=== PATIENT | male | born 1950 | race Caucasian/White ===

== ENCOUNTER 2018-08-17 07:31 | Emergency (ER) | payer MEDICARE, OTHER ==
--- NOTE | 2018-08-17 07:55 | ER Report ---
History and Physical Time Seen By MD: 08:45 Hx. of Stated Complaint: PATIENT REPORTS TROUBLE BREATHING AND CHEST PAIN. PATIENT HAS A PACEMAKER/DEFIB THAT WENT OFF AND WAS TOLD TO COME TO THE ER HPI/ROS CHIEF COMPLAINT: Shortness of breath HISTORY OF PRESENT ILLNESS: Patient is a 59 HO male significant history of diabe j carlos hypertension 2 stents placed congestive heart failure [place] who is noticed worsening shortness of breath and occasional pleuritic chest pain. Patient also has a pacemaker defibrillator which has sent warnings to the wrist with receptive sites notifying that when he is coughing harsh he's had some dysrhythmias. Patient says he also been wrestling with an upper respiratory infection for the last 2-3 weeks which has gotten worse since she's come to altitude. Patient has obstructive sleep apnea morbid obesity and a CPAP the last 5 months comes emergency Department today after being consulted with resulting from his worsening shortness of breath mild orthopnea and change from baseline no PND no additional complaints noted the chest pain is occasional dull aching in the middle of the sternum that he's had this numerous times before no additional complaints noted REVIEW OF SYSTEMS: Respiratory: Cough shortness of breath Cardiovascular: Dull aching chest discomfort intermittent no palpitations Gastrointestinal: No vomiting, no abdominal pain. Musculoskeletal: No back pain. Remainder of the 14 system rev: Yes Allergies: Coded Allergies: No Known Drug Allergies (Unverified , 08/17/18) Home Meds Reported Medications Insulin Glargine 100 Un/Ml Pen (LANTUS SOLOSTAR PEN) 100 Unit/1 Ml Insuln.pen, 100 UNIT SQ, PEN 08/17/18 Vitamin A (VITAMIN A) 10,000 Unit Capsule, 45699 UNIT PO DAILY, CAPSULE 08/17/18 Clopidogrel Bisulfate (CLOPIDOGREL) 75 Mg Tablet, 1 TAB PO QDAY, TAB 08/17/18 Carvedilol (CARVEDILOL) 12.5 Mg Tablet, 12.5 MG PO BID, #10 TAB 08/17/18 Sacubitril/Valsartan (Entresto 24 mg-26 mg Tablet) 1 Each Tablet, 24 MG 08/17/18 Gabapentin (GABAPENTIN) 300 Mg Capsule, 300 MG PO TID, CAPSULE 08/17/18 Atorvastatin Calcium (LIPITOR) 40 Mg Tablet, 1 TAB PO QDAY, TAB 08/17/18 Pioglitazone Hcl (ACTOS) 45 Mg Tablet, 45 MG PO QDAY 08/17/18 Reviewed Nurses Notes: Yes Old Medical Records Reviewed: Yes Constitutional Vital Sign - Last 24 Hours 08/17/18 08/17/18 08/17/18 08/17/18 07:31 07:35 07:35 07:46 Temp 98.4 Pulse ??? 91 93 Resp 20 B/P (MAP) 158/103 158/103 (121) Pulse Ox 95 O2 Delivery Room Air 08/17/18 08/17/18 08/17/18 08/17/18 08:01 08:11 08:16 08:30 Pulse 91 89 Resp 28 26 B/P (MAP) 135/87 (103) 141/91 (108) Pulse Ox 95 97 O2 Flow Rate 2.0 08/17/18 08/17/18 08/17/18 08/17/18 08:31 08:46 09:01 09:11 Pulse 85 86 81 81 Resp 25 24 Pulse Ox 92 92 Physical Exam General Appearance: The patient is alert, has no immediate need for airway protection and no current signs of toxicity. [ ] Eyes: Pupils equal and round no injection. Respiratory: Chest is non tender, lungs are clear to auscultation. Cardiac: regular rate and rhythm [ ] Gastrointestinal: Abdomen is soft and non tender, no masses, bowel sounds normal. Musculoskeletal: Neck: Neck is supple and non tender. Extremities have full range of motion and are non tender. Skin: No rashes or lesions. [ ] DIFFERENTIAL DIAGNOSIS: After history and physical exam differential diagnosis was considered for CHF COPD pneumonia congestive heart failure myocardial infarction pulmonary emboli altitude effect Medical Decision Making Data Points Result Diagram: 08/17/18 0800 08/17/18 0800 Laboratory Hematology Test 08/17/18 08:00 08/17/18 08:22 Red Blood Count 3.98 M/uL (4.00-5.60) Mean Corpuscular Volume 93.2 fL (80.0-96.0) Mean Corpuscular Hemoglobin 30.7 pg (26.0-33.0) Mean Corpuscular Hemoglobin Concent 32.9 g/dL (32.0-36.0) Red Cell Distribution Width 13.8 % (11.5-14.5) Mean Platelet Volume 9.6 fL (7.2-11.1) Neutrophils (%) (Auto) 61.7 % (39.4-72.5) Lymphocytes (%) (Auto) 26.5 % (17.6-49.6) Monocytes (%) (Auto) 8.6 % (4.1-12.4) Eosinophils (%) (Auto) 2.7 % (0.4-6.7) Basophils (%) (Auto) 0.5 % (0.3-1.4) Nucleated RBC Relative Count (auto) 0.0 /100WBC Neutrophils # (Auto) 5.1 K/uL (2.0-7.4) Lymphocytes # (Auto) 2.2 K/uL (1.3-3.6) Monocytes # (Auto) 0.7 K/uL (0.3-1.0) Eosinophils # (Auto) 0.2 K/uL (0.0-0.5) Basophils # (Auto) 0.0 K/uL (0.0-0.1) Nucleated RBC Absolute Count (auto) 0.00 K/uL D-Dimer Quantitative (PE/DVT) 0.66 ug/ml (0-0.50) Sodium Level 138 mmol/L (137-145) Potassium Level 4.6 mmol/L (3.5-5.0) Chloride Level 102 mmol/L (98-107) Carbon Dioxide Level 27 mmol/L (22-30) Blood Urea Nitrogen 33 mg/dl (9-21) Creatinine 1.40 mg/dl (0.66-1.25) Glomerular Filtration Rate Calc 50.4 Random Glucose 296 mg/dl (75-110) Calcium Level 9.2 mg/dl (8.4-10.2) Total Bilirubin 0.4 mg/dl (0.2-1.3) Aspartate Amino Transf (AST/SGOT) 22 U/L (0-35) Alanine Aminotransferase (ALT/SGPT) 25 U/L (0-56) Alkaline Phosphatase 87 U/L (0-126) Troponin I < 0.012 ng/ml B-Type Natriuretic Peptide 45 pg/ml (0-100) Total Protein 7.4 g/dl (6.3-8.2) Albumin 4.0 g/dl (3.5-5.0) Blood Gas Puncture Site Left radial Blood Gas Patient Temperature 97.5 DEGREES Arterial Blood pH 7.42 (7.35-7.45) Arterial Blood Partial Pressure CO2 31 mmHg (32-37) Arterial Blood Partial Pressure O2 72 mmHg (60-80) Arterial Blood HCO3 20 mmol/L (20-26) Arterial Blood Oxygen Saturation 95 % (92-100) Arterial Blood Base Excess -4.0 mmol/L Orlando Test Acceptable Oxygen Liters/Minute 28 Chemistry Test 08/17/18 08:00 08/17/18 08:22 White Blood Count 8.3 k/uL (4.5-11.0) Red Blood Count 3.98 M/uL (4.00-5.60) Hemoglobin 12.2 g/dL (14.0-18.0) Hematocrit 37.1 % (42.0-52.0) Mean Corpuscular Volume 93.2 fL (80.0-96.0) Mean Corpuscular Hemoglobin 30.7 pg (26.0-33.0) Mean Corpuscular Hemoglobin Concent 32.9 g/dL (32.0-36.0) Red Cell Distribution Width 13.8 % (11.5-14.5) Platelet Count 167 K/uL (150-450) Mean Platelet Volume 9.6 fL (7.2-11.1) Neutrophils (%) (Auto) 61.7 % (39.4-72.5) Lymphocytes (%) (Auto) 26.5 % (17.6-49.6) Monocytes (%) (Auto) 8.6 % (4.1-12.4) Eosinophils (%) (Auto) 2.7 % (0.4-6.7) Basophils (%) (Auto) 0.5 % (0.3-1.4) Nucleated RBC Relative Count (auto) 0.0 /100WBC Neutrophils # (Auto) 5.1 K/uL (2.0-7.4) Lymphocytes # (Auto) 2.2 K/uL (1.3-3.6) Monocytes # (Auto) 0.7 K/uL (0.3-1.0) Eosinophils # (Auto) 0.2 K/uL (0.0-0.5) Basophils # (Auto) 0.0 K/uL (0.0-0.1) Nucleated RBC Absolute Count (auto) 0.00 K/uL D-Dimer Quantitative (PE/DVT) 0.66 ug/ml (0-0.50) Glomerular Filtration Rate Calc 50.4 Calcium Level 9.2 mg/dl (8.4-10.2) Total Bilirubin 0.4 mg/dl (0.2-1.3) Aspartate Amino Transf (AST/SGOT) 22 U/L (0-35) Alanine Aminotransferase (ALT/SGPT) 25 U/L (0-56) Alkaline Phosphatase 87 U/L (0-126) Troponin I < 0.012 ng/ml B-Type Natriuretic Peptide 45 pg/ml (0-100) Total Protein 7.4 g/dl (6.3-8.2) Albumin 4.0 g/dl (3.5-5.0) Blood Gas Puncture Site Left radial Blood Gas Patient Temperature 97.5 DEGREES Arterial Blood pH 7.42 (7.35-7.45) Arterial Blood Partial Pressure CO2 31 mmHg (32-37) Arterial Blood Partial Pressure O2 72 mmHg (60-80) Arterial Blood HCO3 20 mmol/L (20-26) Arterial Blood Oxygen Saturation 95 % (92-100) Arterial Blood Base Excess -4.0 mmol/L Orlando Test Acceptable Oxygen Liters/Minute 28 Coagulation Test 08/17/18 08:00 D-Dimer Quantitative (PE/DVT) 0.66 ug/ml ED Course/Re-evaluation ED Course ED course 67-year-old male who came in today with some shortness of breath he is recently traveled to higher altitudes however he does have a strong a significant history of cardiac abnormalities I didn't ABG which was relatively unremarkable BNP d-dimer was elevated follow-up CT angiography showed no pulmona ry emboli but some small nodules no pleural effusions EKG was consistent with his prior episodes and showed no ischemic changes negative troponin markers were also noted give him supplemental O2 which she said made him feel better and I will start him on some month O2 at home at least for the next period of time for follow-up diagnosis will be shortness of breath most likely altitude related Decision to Disposition Date: Aug 17, 2018 Decision to Disposition Time: 09:58 Depart Departure Latest Vital Signs Vital Signs Date Time Temp Pulse Resp B/P (MAP) Pulse Ox O2 Delivery O2 Flow Rate FiO2 08/17/18 09:11 81 08/17/18 08:46 24 92 08/17/18 08:30 141/91 (108) 6/6/19 08:11 2.0 08/17/18 07:35 98.4 Room Air Impression: Primary Impression: Shortness of breath Condition: Improved Disposition: HOME OR SELF-CARE Referrals: BUCKY GARCIA 10 Days Patient Instructions: Dyspnea (ED) PAULINE ADAME MD Aug 17, 2018 07:55
--- NOTE | 2018-08-17 08:07 | EKG ---
FACILITY: [facility] PATIENT NAME: BENJY PARTIDA : [id number] MR: [id number] V: [id number] EXAM DATE: ORDERING PHYSICIAN: PAULINE ADAME TECHNOLOGIST: Test Reason : Blood Pressure : / mmHG Vent. Rate : 091 BPM Atrial Rate : 091 BPM P-R Int : 176 ms QRS Dur : 118 ms QT Int : 400 ms P-R-T Axes : 073 227 070 degrees QTc Int : 492 ms Appears to be electronic ventricular paced rhythm One PVC noted Abnormal ECG No previous ECGs available Confirmed by JAMAL ARIAS ([id number]) on 08/17/2018 3:10:54 PM Referred By: Confirmed By:JAMAL ARIAS
[2018-08-17 08:12] LABS: PLATELET COUNT, AUTOMATED 167 K/uL (150-450)
[2018-08-17] MEDS ORDERED: NS(*) 0.9% 50 ML BAG 50 ML ONE (08:50)
[2018-08-17] MEDS ORDERED: IOPAMIDOL 76% 100 ML INFUS BTL 100 ML ONE (08:50)
[2018-08-17] MEDS ORDERED: PIOG45TA22 PO (08:51)
[2018-08-17] MEDS ORDERED: GABA-549 PO (08:55)
[2018-08-17] MEDS ORDERED: INSU100I30 SQ (08:55)
[2018-08-17] MEDS ORDERED: ATOR40TA24 PO (08:55)
[2018-08-17] MEDS ORDERED: CARV12.578 PO (08:55)
[2018-08-17] MEDS ORDERED: SACU1TAB (08:55)
[2018-08-17] MEDS ORDERED: CLOP75TA PO (08:55)
[2018-08-17] MEDS ORDERED: [UNRECOGNIZED DRUG - CODE] PO (08:55)
--- NOTE | 2018-08-17 09:37 | RADIOLOGY IMAGING REPORT ---
FACILITY: [facility] PATIENT NAME: Elver Callejas : 1950 MR: [id number] V: [id number] EXAM DATE: ORDERING PHYSICIAN: PAULINE ADAME TECHNOLOGIST: Location: [facility] Patient: Elver Callejas : 1950 Visit/Account:[id number] Date of Sevice: 08/17/2018 CT CTA CHEST W & W/O CON HISTORY: sob ADDITIONAL HISTORY: None. TECHNIQUE: CTA chest with intravenous contrast. Axial imaging acquired following administration of IV contrast timed for maximum opacification of the pulmonary arterial vasculature. Slab 3-D MIP waldo nstructed images were also created for further evaluation and interpretation. Reconstruction of the s [facility] data set includes multiplanar 2-D in the sagittal and coronal planes and 3-D reconstructed lisa nal slab MIP series. 3-D images were created by the technologist.Dose Lowering Technique One of the following dose optimization techniques was utilized in the performance of this exam: Autom ated exposure control; adjustment of the mA and/or kV according to the patient's size; or use of an i terative reconstruction technique. Specific details can be referenced in the facility's radiology C T exam operational policy. CONTRAST: 75 mL Isovue-370 COMPARISON: None. FINDINGS: Lungs/pleura: There are small calcified granulomas in the right middle lobe in addition to several s maller noncalcified nodules of the largest measuring approximately 3 mm in diameter. There is a smal l amount of airspace consolidation the posterior sulcus of the right lower lobe likely representing a telectasis. Several small calcified granulomas also identified in the left lower lobe Heart/vessels: There is no evidence of pulmonary emboli. Cardiac pacemaker/AICD device is noted. T here are severe coronary artery calcifications and/or stents Mediastinum/lymph nodes: Negative. Visualized upper abdomen: There upper pole renal cysts bilaterally Bones/soft tissues: Scoliosis and spondylotic changes of the thoracic spine Additional findings: The right lobe the thyroid gland appears enlarged and contains a heterogeneous mass IMPRESSION: No evidence of pulmonary emboli There are severe coronary artery calcifications and/or stents There are small calcified and noncalcified pulmonary nodules in the right middle lobe measuring up to 3 mm FLEISCHNER SOCIETY FOLLOW-UP GUIDELINES FOR NEWLY DETECTED INCIDENTAL NODULES IN PERSONS 35 YEARS OF AGE OR OLDER. *These recommendations do NOT apply to lung cancer screening, patients with immunosuppression or wayne ents with a known primary malignancy. MULTIPLE SOLID NODULES If nodule size is < 6 mm: * Low risk patient ? No routine follow-up. * High risk patient ? Optional CT at 12 months. If nodule size is 6-8 mm: * Low risk patient ? CT at 3-6 months, then consider CT at 18-24 months if no change. * High risk patient ? CT at 3-6 months, then CT at 18-24 months if no change. If nodule size is > 8 mm: * Low risk patient ? CT at 3-6 months, then consider CT at 18-24 months if no change. * High risk patient ? CT at 3-6 months, then consider CT at 18-24 months if no change. LOW RISK PATIENT: Minimal or absent history of tobacco use and of other known risk factors. HIGH RISK PATIENT: Tobacco use, family history of lung cancer, upper pulmonary lobe location of nodul e, presence of emphysema, pulmonary fibrosis, older age. Jimmyhoerwin H, Rahel DP, Nichelle JM, et al. Guidelines for Management of Incidental Pulmonary Nodules Dete cted on CT Images: From the Fleischner Society 2017. Radiology. uchnipn Renal cysts The right lobe of the thyroid gland appears enlarged and contains a heterogeneous mass. Thyroid ultr asound is recommended Report Dictated By: Anni Almanza MD at 08/17/2018 9:22 AM Report E-Signed By: Anni Almanza MD at 08/17/2018 9:33 AM GONSALO:NEO
[2018-08-17 10:27] VITALS: BP 126/78
== END 2018-08-17 10:55 | disposition home or self-care (01) ==
LOC: ER 07:44
DX: R06.02 Shortness of breath (principal)
CPT/HCPCS: 36600; 71275; 82803; 83880; 84484; 85025; 85379; 93005; 99284; J7050; Q9967; 82040; 82247; 82310; 82374; 82435; 82565; 82947; 84075; 84132; 84155; 84295; 84450; 84460; 84520

== ENCOUNTER 2018-09-18 12:52 | Emergency (ER) | payer MEDICARE, OTHER ==
[~2018-09-18 12:52] MED LIST: ATOR40TA24 PO; CARV12.578 PO; CLOP75TA PO; GABA-549 PO; INSU100I30 SQ; PIOG45TA22 PO; SACU1TAB; [UNRECOGNIZED DRUG - CODE] PO
--- NOTE | 2018-09-18 12:54 | ER Report ---
History and Physical Time Seen By : 12:52 HPI/ROS Recently moved to [place] from [place]. Multiple chronic medical problems including DM. HTN. previous NV with stents, and obesity. Complaining of b/l lower abdominal pain. No BM in 2 days. No n/d. No dysuria. No hematuria. No penile discharge. No CP or SOB. No trauma. Remainder of the 14 system rev: Yes Allergies: Coded Allergies: No Known Drug Allergies (Unverified , 08/17/18) Home Meds Reported Medications Empagliflozin (Jardiance) 25 Mg Tablet, 25 MG PO QDAY 09/18/18 Insulin Glargine 100 Un/Ml Pen (LANTUS SOLOSTAR PEN) 100 Unit/1 Ml Insuln.pen, 100 UNIT SQ, PEN 08/17/18 Vitamin A (VITAMIN A) 10,000 Unit Capsule, 89819 UNIT PO DAILY, CAPSULE 08/17/18 Clopidogrel Bisulfate (CLOPIDOGREL) 75 Mg Tablet, 1 TAB PO QDAY, TAB 08/17/18 Carvedilol (CARVEDILOL) 12.5 Mg Tablet, 12.5 MG PO BID, #10 TAB 08/17/18 Sacubitril/Valsartan (Entresto 24 mg-26 mg Tablet) 1 Each Tablet, 24 MG 08/17/18 Gabapentin (GABAPENTIN) 300 Mg Capsule, 300 MG PO TID, CAPSULE 08/17/18 Atorvastatin Calcium (LIPITOR) 40 Mg Tablet, 1 TAB PO QDAY, TAB 08/17/18 Pioglitazone Hcl (ACTOS) 45 Mg Tablet, 45 MG PO QDAY 08/17/18 Reviewed Nurses Notes: Yes Old Medical Records Reviewed: Yes Hx Substance Use Disorder: Yes Constitutional Vital Sign - Last 24 Hours 09/18/18 09/18/18 09/18/18 09/18/18 12:54 12:58 13:00 13:22 Temp 97.4 Pulse 99 Resp 24 B/P (MAP) 152/109 (123) 152/109 126/104 (111) Pulse Ox 94 90 O2 Delivery Room Air 09/18/18 09/18/18 09/18/18 09/18/18 13:30 13:41 14:00 14:05 Pulse 80 B/P (MAP) 118/66 (83) 112/66 (81) 128/87 (101) Pulse Ox 92 09/18/18 09/18/1819 14:30 14:35 15:05 Pulse 99 109 Resp 0 6 B/P (MAP) 93/71 (78) Physical Exam General Appearance: The patient is alert, has no immediate need for airway protection and no current signs of toxicity. Eyes: Pupils equal and round no injection. Respiratory: Chest is non tender, lungs are clear to auscultation. Cardiac: regular rate and rhythm Gastrointestinal: Abdomen is soft with minimal TTP of the b/l lower quadrants. no masses, bowel sounds normal. Extremities have full range of motion and are non tender. Skin: No rashes or lesions. DIFFERENTIAL DIAGNOSIS: After history and physical exam differential diagnosis was considered for abdominal pain including but not limited to appendicitis, cholecystitis, gastritis and urinary tract infection. Medical Decision Making Data Points Result Diagram: 09/18/18 1311 09/18/18 1311 Laboratory Hematology Test 09/18/18 13:11 09/18/18 13:20 Red Blood Count 4.29 M/uL (4.00-5.60) Mean Corpuscular Volume 92.0 fL (80.0-96.0) Mean Corpuscular Hemoglobin 30.9 pg (26.0-33.0) Mean Corpuscular Hemoglobin Concent 33.6 g/dL (32.0-36.0) Red Cell Distribution Width 13.8 % (11.5-14.5) Mean Platelet Volume 9.7 fL (7.2-11.1) Neutrophils (%) (Auto) 62.9 % (39.4-72.5) Lymphocytes (%) (Auto) 26.1 % (17.6-49.6) Monocytes (%) (Auto) 8.5 % (4.1-12.4) Eosinophils (%) (Auto) 2.1 % (0.4-6.7) Basophils (%) (Auto) 0.4 % (0.3-1.4) Nucleated RBC Relative Count (auto) 0.0 /100WBC Neutrophils # (Auto) 5.0 K/uL (2.0-7.4) Lymphocytes # (Auto) 2.1 K/uL (1.3-3.6) Monocytes # (Auto) 0.7 K/uL (0.3-1.0) Eosinophils # (Auto) 0.2 K/uL (0.0-0.5) Basophils # (Auto) 0.0 K/uL (0.0-0.1) Nucleated RBC Absolute Count (auto) 0.00 K/uL Sodium Level 140 mmol/L (137-145) Potassium Level 4.2 mmol/L (3.5-5.0) Chloride Level 107 mmol/L (98-107) Carbon Dioxide Level 20 mmol/L (22-30) Blood Urea Nitrogen 30 mg/dl (9-21) Creatinine 1.60 mg/dl (0.66-1.25) Glomerular Filtration Rate Calc 43.1 Random Glucose 330 mg/dl (75-110) Calcium Level 9.1 mg/dl (8.4-10.2) Total Bilirubin 0.4 mg/dl (0.2-1.3) Aspartate Amino Transf (AST/SGOT) 22 U/L (0-35) Alanine Aminotransferase (ALT/SGPT) 39 U/L (0-56) Alkaline Phosphatase 99 U/L (0-126) Troponin I < 0.012 ng/ml B-Type Natriuretic Peptide 119 pg/ml (0-100) Total Protein 7.3 g/dl (6.3-8.2) Albumin 3.8 g/dl (3.5-5.0) Lipase 187 U/L (23-300) Urine Color Straw Urine Clarity Clear Urine pH 5.0 pH (4.8-9.5) Urine Specific [place] 1.025 Urine Protein Negative mg/dL (NEGATIVE) Urine Glucose (UA) 500 mg/dL (NEGATIVE) Urine Ketones Negative mg/dL (NEGATIVE) Urine Blood Negative (NEGATIVE) Urine Nitrite Negative (NEGATIVE) Urine Bilirubin Negative (NEGATIVE) Urine Urobilinogen Negative mg/dL (0.2-1.9) Urine Leukocyte Esterase Negative (NEGATIVE) Urine RBC <1 /HPF (0-2/HPF) Urine WBC <1 /HPF (0-5/HPF) Urine Squamous Epithelial Cells None /LPF (</=FEW) Urine Bacteria Negative /HPF (NONE-FEW) Urine Mucus None /HPF (NONE-FEW) Chemistry Test 09/18/18 13:11 09/18/18 13:20 White Blood Count 8.0 k/uL (4.5-11.0) Red Blood Count 4.29 M/uL (4.00-5.60) Hemoglobin 13.3 g/dL (14.0-18.0) Hematocrit 39.5 % (42.0-52.0) Mean Corpuscular Volume 92.0 fL (80.0-96.0) Mean Corpuscular Hemoglobin 30.9 pg (26.0-33.0) Mean Corpuscular Hemoglobin Concent 33.6 g/dL (32.0-36.0) Red Cell Distribution Width 13.8 % (11.5-14.5) Platelet Count 173 K/uL (150-450) Mean Platelet Volume 9.7 fL (7.2-11.1) Neutrophils (%) (Auto) 62.9 % (39.4-72.5) Lymphocytes (%) (Auto) 26.1 % (17.6-49.6) Monocytes (%) (Auto) 8.5 % (4.1-12.4) Eosinophils (%) (Auto) 2.1 % (0.4-6.7) Basophils (%) (Auto) 0.4 % (0.3-1.4) Nucleated RBC Relative Count (auto) 0.0 /100WBC Neutrophils # (Auto) 5.0 K/uL (2.0-7.4) Lymphocytes # (Auto) 2.1 K/uL (1.3-3.6) Monocytes # (Auto) 0.7 K/uL (0.3-1.0) Eosinophils # (Auto) 0.2 K/uL (0.0-0.5) Basophils # (Auto) 0.0 K/uL (0.0-0.1) Nucleated RBC Absolute Count (auto) 0.00 K/uL Glomerular Filtration Rate Calc 43.1 Calcium Level 9.1 mg/dl (8.4-10.2) Total Bilirubin 0.4 mg/dl (0.2-1.3) Aspartate Amino Transf (AST/SGOT) 22 U/L (0-35) Alanine Aminotransferase (ALT/SGPT) 39 U/L (0-56) Alkaline Phosphatase 99 U/L (0-126) Troponin I < 0.012 ng/ml B-Type Natriuretic Peptide 119 pg/ml (0-100) Total Protein 7.3 g/dl (6.3-8.2) Albumin 3.8 g/dl (3.5-5.0) Lipase 187 U/L (23-300) Urine Color Straw Urine Clarity Clear Urine pH 5.0 pH (4.8-9.5) Urine Specific [place] 1.025 Urine Protein Negative mg/dL (NEGATIVE) Urine Glucose (UA) 500 mg/dL (NEGATIVE) Urine Ketones Negative mg/dL (NEGATIVE) Urine Blood Negative (NEGATIVE) Urine Nitrite Negative (NEGATIVE) Urine Bilirubin Negative (NEGATIVE) Urine Urobilinogen Negative mg/dL (0.2-1.9) Urine Leukocyte Esterase Negative (NEGATIVE) Urine RBC <1 /HPF (0-2/HPF) Urine WBC <1 /HPF (0-5/HPF) Urine Squamous Epithelial Cells None /LPF (</=FEW) Urine Bacteria Negative /HPF (NONE-FEW) Urine Mucus None /HPF (NONE-FEW) Urinalysis Test 09/18/18 13:20 Urine Color Straw Urine Clarity Clear Urine pH 5.0 pH (4.8-9.5) Urine Specific [place] 1.025 Urine Protein Negative mg/dL (NEGATIVE) Urine Glucose (UA) 500 mg/dL (NEGATIVE) Urine Ketones Negative mg/dL (NEGATIVE) Urine Blood Negative (NEGATIVE) Urine Nitrite Negative (NEGATIVE) Urine Bilirubin Negative (NEGATIVE) Urine Urobilinogen Negative mg/dL (0.2-1.9) Urine Leukocyte Esterase Negative (NEGATIVE) Urine RBC <1 /HPF (0-2/HPF) Urine WBC <1 /HPF (0-5/HPF) Urine Squamous Epithelial Cells None /LPF (</=FEW) Urine Bacteria Negative /HPF (NONE-FEW) Urine Mucus None /HPF (NONE-FEW) ED Course/Re-evaluation ED Course Minimal tenderness to palpation on abdominal exam. Abdomen is soft. No fevers. Taking by mouth. No chest pain or shortness of breath. No evidence of infection. CT scan shows no acute findings to explain pain. The patient is aware of his kidney disease. The CT scan is notable for constipation which is likely the source of his discomfort. The patient otherwise looks well and at his baseline. He agrees that this could be the source of his symptoms. I'm going to give him magnesium citrate to take home. He will start to take MiraLAX daily and be more vigilant about his diet. He will follow-up with his PCM this week. Decision to Disposition Date: Sep 18, 2018 Decision to Disposition Time: 15:39 Depart Departure Latest Vital Signs Vital Signs Date Time Temp Pulse Resp B/P (MAP) Pulse Ox O2 Delivery O2 Flow Rate FiO2 09/18/18 15:05 109 6 09/18/18 14:30 93/71 (78) 09/18/18 14:05 92 09/18/18 12:58 97.4 Room Air Impression: Primary Impression: Abdominal pain Condition: Improved Disposition: HOME OR SELF-CARE Patient Instructions: Constipation (ED) Problem Qualifiers Primary Impression: Abdominal pain Abdominal location: lower abdomen, unspecified Qualified Codes: R10.30 - Lower abdominal pain, unspecified EZEKIEL JOHNSON MD Sep 18, 2018 12:54
[2018-09-18] MEDS ORDERED: EMPA25TA PO (13:06)
[2018-09-18] MEDS ORDERED: ONDANSETRON 4 MG/2 ML VIAL IVP ONE (13:35)
[2018-09-18] MEDS ORDERED: MORPHINE 4 MG/ML SDV IVP ONE (13:35)
[2018-09-18 13:36] LABS: PLATELET COUNT, AUTOMATED 173 K/uL (150-450)
--- NOTE | 2018-09-18 13:47 | EKG ---
FACILITY: [facility] PATIENT NAME: BENJY PARTIDA : [id number] MR: [id number] V: [id number] EXAM DATE: ORDERING PHYSICIAN: EZEKIEL JOHNSON TECHNOLOGIST: Test Reason : Blood Pressure : / mmHG Vent. Rate : 092 BPM Atrial Rate : 087 BPM P-R Int : 000 ms QRS Dur : 136 ms QT Int : 412 ms P-R-T Axes : 000 -47 125 degrees QTc Int : 509 ms Appears to be probable atrial fibrillation Left axis deviation Left bundle branch block Abnormal ECG Confirmed by JAMAL ARIAS ([id number]) on 09/18/2018 7:40:14 PM Referred By: Confirmed By:JAMAL ARIAS
[2018-09-18 14:30] VITALS: BP 93/71
--- NOTE | 2018-09-18 14:31 | RADIOLOGY IMAGING REPORT ---
FACILITY: [facility] [place] PATIENT NAME: Elver Callejas : 1950 MR: [id number] V: [id number] EXAM DATE: ORDERING PHYSICIAN: EZEKIEL JOHNSON TECHNOLOGIST: Location: [facility] [place] Patient: Elver Callejas : 1950 Visit/Account:[id number] Date of Sevice: 09/18/2018 Exam type: CHEST PA LAT History: Chest and abdomen pain Comparison: CTA chest August 17, 2018. Findings: There is mild blunting the right costophrenic angle which may be related to pleural thickening versus small right pleural effusion. There is no evidence of acute-appearing pulmonary infiltrates or over t pulmonary edema. The cardiac silhouette is normal in size. There is a cardiac pacemaker/AICD omer ce. IMPRESSION: 1. Mild blunting the right costophrenic angle consistent with pleural thickening versus small right pleural effusion. Report Dictated By: Anni Almanza MD at 09/18/2018 2:22 PM Report E-Signed By: Anni Almanza MD at 09/18/2018 2:25 PM WSN:[email or web address]
--- NOTE | 2018-09-18 15:08 | RADIOLOGY IMAGING REPORT ---
FAC[place] [facility] [place] NAME: Elver Callejas : 1950 MR: [id number] V: [id number] EXAM DATE: ORDERING PHYSICIAN: EZEKIEL JOHNSON TECHNOLOGIST: Location: [facility] - [place] Patient: Elver Callejas : 1950 Visit/Account:[id number] Date of Sevice: 09/18/2018 CT ABDOMEN PELVIS W/O CON HISTORY: RLQ pain and n/v for 2 days TECHNIQUE: Axial images acquired through the abdomen/pelvis. Coronal and sagittal reformatting also performed. No IV contrast administered.Dose Lowering Technique One of the following dose optimization techniques was utilized in the performance of this exam: Autom ated exposure control; adjustment of the mA and/or kV according to the patient's size; or use of an i terative reconstruction technique. Specific details can be referenced in the facility's radiology C T exam operational policy. COMPARISON: None. FINDINGS: Visualized lung bases: Small amount of linear stranding in the right lung base consistent with scarr ing versus atelectasis. There are cardiac pacemaker leads Hepatobiliary: Negative. Spleen: Negative. Adrenals: Negative. Pancreas: Negative. Kidneys ureters and bladder: There is extremely lobular contour to both kidneys. There are numerous hypoattenuating masses many of which are too small to characterize by CT. There is a 3.7 cm cyst pro jecting from the medial upper pole of the left kidney and 2.1 cm cyst posterior aspect upper pole of the left kidney. There is a 2 mm nonobstructing calculus upper pole of the left kidney. At least fo ur calcified occasions are identified in the right kidney some may be intraparenchymal and measure up to 4 mm in diameter Genitalia: Negative. GI: There is no evidence of bowel obstruction or bowel wall thickening. The appendix is visualized and does not appear inflamed. Vessels/spaces/nodes: There moderate atherosclerotic calcifications of the abdominal aorta and branc h vessels there are shotty retroperitoneal lymph nodes present. There are multiple borderline enlarg ed lymph nodes in the external iliac chains bilaterally Bones/soft tissues: There is a ventral hernia to the left of midline just above the umbilicus contai bonita fat. The hernia opening measures approximately 1.8 cm in diameter. Just below this level is a second ventral hernia containing fat to the left of midline with the hernia opening measuring 1.6 cm in diameter . There is a small umbilical hernia containing fat and bilateral inguinal hernias contai bonita fat Additional findings: There spondylotic changes of the lower lumbar spine IMPRESSION: Is extremely lobular contour to both kidneys with numerous hypoattenuating masses, many of which are too small to characterize. There are two cyst projecting from the upper pole the left kidney 2 mm nonobstructing calculus upper pole calyx of the left kidney At least four calcified occasions measuring up to 4 mm are identified in the right kidney. Some of t hese may be intraparenchymal The appendix is visualized and does not appear inflamed Moderate vascular calcifications Multiple borderline enlarged lymph nodes in the external iliac chains bilaterally. These may be reac tive. Clinical correlation needed 2. Ventral hernias above the level of the umbilicus both to the l eft midline containing fat Small umbilical hernia containing fat Small bilateral inguinal hernias containing fat Report Dictated By: Anni Almanza MD at 09/18/2018 2:50 PM Report E-Signed By: Anni Almanza MD at 09/18/2018 3:02 PM WSN:[email or web address]
[2018-09-18] MEDS ORDERED: MAGNESIUM CITRATE 300 ML BTL PO ONE (15:30)
== END 2018-09-18 15:48 | disposition home or self-care (01) ==
LOC: ER 13:13
DX: K59.00 Constipation, unspecified (principal); I44.7 Left bundle-branch block, unspecified; R07.9 Chest pain, unspecified; E11.9 Type 2 diabetes mellitus without complications; I10 Essential (primary) hypertension; I25.2 Old myocardial infarction
CPT/HCPCS: 71046; 74176; 81001; 83690; 83880; 84484; 85025; 93005; 96374; 96375; 99284; J2270; J2405; 82040; 82247; 82310; 82374; 82435; 82565; 82947; 84075; 84132; 84155; 84295; 84450; 84460; 84520